=== PATIENT | female | born 1965 | race African-American/Black ===

== ENCOUNTER 2016-12-01 21:34 | Emergency (ER) | payer SELFPAY ==
[2016-12-01 23:55] LABS: ABSOLUTE LYMPHOCYTES (AUTO) 1.3 10^3/uL (0.5-4.7); ABSOLUTE MONOCYTES (AUTO) 0.5 10^3/uL (0.1-1.4); ABSOLUTE NEUT (AUTO) 3.1 10^3/uL (1.7-8.2); BASOPHILS % (AUTO) 0.9 % (0-2); EOSINOPHILS % (AUTO) 0.2 % (0-6); HEMATOCRIT 36.4 % (36.0-47.0); HEMOGLOBIN 12.1 g/dL (12.0-15.5); HGB HCT DIFFERENCE -0.1; LYMPHOCYTES % (AUTO) 26.3 % (13-45); MEAN CORPUSCULAR HEMOGLOBIN 32.1 pg (27.0-33.4); MEAN CORPUSCULAR HGB CONC 33.2 g/dL (32.0-36.0); MEAN CORPUSCULAR VOLUME 97 fl (80-97); RED BLOOD COUNT 3.77 10^6/uL (3.72-5.28); RED CELL DISTRIBUTION WIDTH 15.2 % (11.5-14.0); SEGMENTED NEUTROPHILS % (AUTO) 62.6 % (42-78); WHITE BLOOD COUNT 4.9 10^3/uL (4.0-10.5)
[2016-12-02 00:10] LABS: ALANINE AMINOTRANSFERASE 46 U/L (9-52); ALBUMIN 4.4 g/dL (3.5-5.0); ALKALINE PHOSPHATASE 138 U/L (38-126); ANION GAP 14 (5-19); ASPARTATE AMINO TRANSFERASE 113 U/L (14-36); BILIRUBIN,DIRECT 0.4 mg/dL (0.0-0.4); BILIRUBIN,TOTAL 0.9 mg/dL (0.2-1.3); BLOOD UREA NITROGEN 9 mg/dL (7-20); CALCIUM 9.3 mg/dL (8.4-10.2); CARBON DIOXIDE 26 mmol/L (22-30); CHLORIDE 96 mmol/L (98-107); CREATININE RESULT 0.58 mg/dL (0.52-1.25); GLUCOSE 110 mg/dL (75-110); SODIUM 136.1 mmol/L (137-145); TOTAL PROTEIN 8.6 g/dL (6.3-8.2)
[2016-12-02 01:36] VITALS: BP 149/97
--- NOTE | 2016-12-02 01:40 | ER Document Report ---
ED General - General Chief Complaint: High Blood Pressure Stated Complaint: BLOOD PRESSURE PROBLEM Time Seen by Provider: 12/02/16 01:21 Notes: Patient is a 51-year-old female that comes emergency department for chief complaint of elevated blood pressure reading and an episode where she felt lightheaded. Patient states she had just exercised with a long walk when she felt lightheaded, she states the symptoms resolved. She states that she has been drinking alcohol at night and thinks she was dehydrated, she has started rehydrating orally and states she feels improved. She denies headache, chest pain, dizziness, passing out. Patient is not medicated for blood pressure. TRAVEL OUTSIDE OF THE [place] IN LAST 30 DAYS: No - Related Data Allergies/Adverse Reactions: No Known Allergies Allergy (Verified 12/01/16 22:41) Past Medical History - General Information source: Patient - Social History Smoking Status: Never Smoker Frequency of alcohol use: None Drug Abuse: None Lives with: Family Family History: Reviewed & Not Pertinent Patient has suicidal ideation: No Patient has homicidal ideation: No - Medical History Medical History: Negative Renal/ Medical History: Denies: Hx Peritoneal Dialysis Surgical Hx: Negative - Immunizations Immunizations up to date: Yes Hx Diphtheria, Pertussis, Tetanus Vaccination: Yes Review of Systems - Review of Systems Constitutional: No symptoms reported EENT: No symptoms reported Cardiovascular: See HPI Respiratory: No symptoms reported Gastrointestinal: No symptoms reported Genitourinary: No symptoms reported Female Genitourinary: No symptoms reported Musculoskeletal: No symptoms reported Skin: No symptoms reported Hematologic/Lymphatic: No symptoms reported Neurological/Psychological: No symptoms reported Physical Exam - Vital signs Vitals: Temp Pulse Resp BP Pulse Ox 98.1 F 100 18 155/106 H 100 12/01/16 22:37 12/01/16 22:37 12/01/16 22:37 12/01/16 22:37 12/01/16 22:37 Interpretation: Normal - General General appearance: Appears well, Alert In distress: None - HEENT Head: Normocephalic, Atraumatic Eyes: Normal Conjunctiva: Normal Extraocular movements intact: Yes Eyelashes: Normal Pupils: PERRL Sinus: Normal Nasal: Normal Mouth/Lips: Normal Mucous membranes: Normal Pharynx: Normal Neck: Normal - Respiratory Respiratory status: No respiratory distress Chest status: Nontender Breath sounds: Normal. No: Decreased air movement, Wheezing Chest palpation: Normal - Cardiovascular Rhythm: Regular. No: Tachycardia Heart sounds: Normal auscultation, S1 appreciated, S2 appreciated Murmur: No - Abdominal Inspection: Normal Distension: No distension Bowel sounds: Normal Tenderness: Nontender. No: Tender, Guarding Organomegaly: No organomegaly - Back Back: Normal, Nontender. 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 Blood pressure improved and is borderline elevated but not too concerning level based on patient's examination and symptoms. Workup is unremarkable with no notable acute abnormalities. Patient is requesting blood pressure medication. I explained to her that she needed a follow-up before she be placed on something, she states that her blood pressure has been on average running at about 140s-150s systolic and she has been checking it at home, she again requests for medication. I did agree to place her on just 5 mg lisinopril to start with and have her follow-up for this to be rechecked and managed by primary care. Discussed return precautions in detail. Patient states satisfaction in agreement. - Vital Signs Vital signs: Temp Pulse Resp BP Pulse Ox 98.1 F 100 22 H 149/97 H 100 12/01/16 22:37 12/01/16 22:37 12/02/16 01:01 12/02/16 01:00 12/02/16 01:01 - Laboratory Result Diagrams: 12/01/16 23:30 12/01/16 23:30 Laboratory results interpreted by me: 12/01/16 12/01/16 23:30 23:30 RDW 15.2 H Sodium 136.1 L Chloride 96 L AST 113 H Alkaline Phosphatase 138 H Total Protein 8.6 H Discharge - Discharge Clinical Impression: Elevated blood pressure reading, Lightheadedness, Alcohol use Condition: Stable Disposition: HOME, SELF-CARE Additional Instructions: Drink plenty of fluids to rehydrate at home. Take the medication as prescribed, please follow-up closely for reevaluation and additional management by primary care. Reduce alcohol intake. Return to emergency department for any concerning or worsening symptoms. Prescriptions: Lisinopril 5 mg PO DAILY #30 tablet
--- NOTE | 2016-12-02 09:00 | EKG REPORT ---
SEVERITY:- ABNORMAL ECG - SINUS TACHYCARDIA LEFT VENTRICULAR HYPERTROPHY LATERAL INFARCT, OLD BORDERLINE PROLONGED QT INTERVAL : Confirmed by: Jonathan Malave MD 02-Dec-2016 08:59:49
== END 2016-12-02 01:44 | disposition home or self-care (01) ==
LOC: ER 21:34
DX: R03.0 Elevated blood-pressure reading, without diagnosis of hypertension (principal); R42 Dizziness and giddiness; Z72.89 Other problems related to lifestyle
CPT/HCPCS: 36415; 80053; 85025; 93005; 93010; 99283